=== PATIENT | male | born 1955 | race Caucasian/White ===

== ENCOUNTER 2017-09-12 10:27 | Outpatient (CLI) | payer BC, OTHER | END 2017-09-12 10:28 | disposition home or self-care (01) | LOC: SC 10:27 | PROVIDERS: ATTEND Nurse Practitioner Family | DX: G47.33 Obstructive sleep apnea (adult) (pediatric) (principal) | CPT/HCPCS: 99212; 99214 ==

== ENCOUNTER 2017-12-06 08:45 | Outpatient (CLI) | payer BC, OTHER ==
[2017-12-06 17:28] VITALS: BP 126/64
--- NOTE | 2017-12-09 07:45 | CARDIAC PROCEDURE NOTE ---
DATE OF SERVICE: 12/06/2017 Physician: JENNIFER Ji PROCEDURE: Cardiac treadmill stress test. PROCEDURE SYMPTOMS: Atypical chest pain. CARDIAC RISK FACTORS: Age, hypertension, hyperlipidemia. PREVIOUS CARDIAC PROCEDURES: None. CLINICAL HISTORY: A 61-year-old male without known coronary artery disease. INITIAL RESTING VITAL SIGNS: BP 128/86, heart rate 58, height 67 inches, weight 224 pounds, BMI 34.31. PROCEDURE AND FINDINGS: Patient identity and date verified. Consent signed. The patient performed treadmill exercise using a [place] protocol, completing 8 minutes 59 seconds, and completing an estimated workload of 10.16 metabolic equivalents. Maximal blood pressure was 178/68 with a heart rate of 152 beats per minute or 96% of maximum predicted heart rate for age. The blood pressure response to exercise was within normal limits. The patient stopped because he was tiring. The resting ECG demonstrated normal sinus rhythm with no abnormality. Maximum ST-segment depression was less than 0.5 mm and upsloping. There was 1 PAC. FINAL IMPRESSIONS 1. Good quality test. 2. Negative stress electrocardiogram for ischemia by electrocardiographic criteria. 3. Negative stress test clinically for angina. 4. Single PAC. 5. [place] [employer] Association functional class I. Exceeded expected exercise time of 8 minutes 35 seconds. cc: Vielka Tomas PA-C TD: 12/06/2017 10:17
== END 2017-12-06 08:46 | disposition home or self-care (01) ==
LOC: DI 08:45
PROVIDERS: ATTEND Physician Assistant
DX: R07.89 Other chest pain (principal)

== ENCOUNTER 2017-12-14 08:25 | Outpatient (CLI) | payer BC, OTHER ==
--- NOTE | 2017-12-14 12:08 | Ultrasound Report ---
THYROID ULTRASOUND: 12/14/2017 HISTORY: 4 mm thyroid nodule on 2016 ultrasound. COMPARISON: 07/21/2015. FINDINGS: Right lobe 5.2 x 1.7 x 2.2 cm, volume 10.1 mL. Left lobe 4.1 x 1.4 x 1.4 cm, volume 4.2 mL Thyroid isthmus 0.22 mL A 5 x 6 x 5 mm hypoechoic right-sided nodule at the junction of the isthmus and right lobe is similar in appearance to the prior study. Adjacent to this, there is an isoechoic 6 x 3 x 4 mm nodule not definitely seen on the prior study. No regional adenopathy. IMPRESSION: STABLE HYPOECHOIC AVASCULAR RIGHT THYROID NODULE COMPARED WITH . NEW ISOECHOIC 6 X 3 X 4 MM NODULE ADJACENT TO THE PREVIOUSLY SEEN NODULE, A NONSPECIFIC FINDING. NO OTHER SIGNIFICANT FINDINGS. TD: 12/14/2017 11:27 VARUN
--- NOTE | 2017-12-14 15:12 | Ultrasound Report ---
ABDOMEN ULTRASOUND: 12/14/2017 HISTORY: Followup fatty liver. COMPARISON: 07/21/2015. TECHNIQUE: Real-time scanning by this relocation services specialist with saved static images reviewed. FINDINGS: Somewhat limited examination due to the patient's body habitus. Liver 20 cm longitudinally with heterogeneous increased echotexture consistent with fatty infiltration. Normal directional portal venous blood flow. No definite focal mass. Gallbladder: No stones. Gallbladder wall thickness 2.5 mm. Common bile duct 5.6 mm. Pancreas not well seen. Right kidney 10.6 cm and left kidney 11.3 cm in length. No stones, obstruction , or masses. Spleen: 13.6 cm in length. Unremarkable. Aorta and inferior vena cava: Unremarkable. Free fluid: None. IMPRESSION: HEPATOMEGALY WITH FATTY INFILTRATION OF THE LIVER, SIMILAR TO 07/21. OTHERWISE, NEGATIVE ABDOMEN ULTRASOUND. TD: 12/14/2017 14:36 MTDD
== END 2017-12-14 08:26 | disposition home or self-care (01) ==
LOC: DI 08:25
PROVIDERS: ATTEND Physician Assistant
DX: E04.2 Nontoxic multinodular goiter (principal); K76.0 Fatty (change of) liver, not elsewhere classified
CPT/HCPCS: 76536; 76700

== ENCOUNTER 2018-05-27 10:10 | Outpatient (CLI) | payer BC, OTHER ==
[2018-05-27 17:15] LABS: PSA FREE 0.35 ng/mL (0.16-2.81)
[2018-05-27 17:16] LABS: PSA TOTAL 4.36 ng/mL (0.000-2.000)
[2018-05-27 17:18] LABS: FOLATE 15.04 ng/mL (5.90 - >24.8)
== END 2018-05-27 10:11 | disposition home or self-care (01) ==
LOC: LAB.WCP 10:10
PROVIDERS: ATTEND Physician Assistant
DX: R20.2 Paresthesia of skin (principal); N40.0 Benign prostatic hyperplasia without lower urinary tract symptoms
CPT/HCPCS: 36415; 82607; 82746; 83735; 84153; 84154

== ENCOUNTER 2018-09-16 08:11 | Outpatient (CLI) | payer BC, OTHER | END 2018-09-16 08:12 | disposition home or self-care (01) | LOC: SC 08:11 | PROVIDERS: ATTEND Nurse Practitioner Family | DX: G47.33 Obstructive sleep apnea (adult) (pediatric) (principal) | CPT/HCPCS: 99212; 99214 ==

== ENCOUNTER 2019-09-02 08:00 | Outpatient (CLI) | payer BC, OTHER ==
[2019-09-02 12:42] LABS: ALBUMIN 4.2 g/dL (3.2-5.5); ALBUMIN/GLOBULIN RATIO 1.5 (1.0-2.2); ALKALINE PHOSPHATASE 46 IU/L (42-121); ALT ALANINE AMINOTRANSFERASE 46 IU/L (10-60); AST ASPARTATE AMINOTRANSFERASE 27 IU/L (10-42); BILIRUBIN,TOTAL 1.1 mg/dL (0.2-1.0); BUN - BLOOD UREA NITROGEN 21 mg/dL (6-20); CALCIUM 9.1 mg/dL (8.5-10.3); CARBON DIOXIDE - CO2 27 mmol/L (21-32); CHLORIDE 105 mmol/L (101-111); CHOLESTEROL 134 mg/dL; CREATININE 1.1 mg/dL (0.6-1.2); GFR - MDRD 67 (>89); GLUCOSE 114 mg/dL (70-100); HDL CHOLESTEROL 45 mg/dL; LDL CHOLESTEROL,CALCULATED 77 mg/dL; LDL/HDL RATIO 1.7 (<3.6); SODIUM 139 mmol/L (135-145); VLDL CHOLESTEROL 12 mg/dL
[2019-09-02 12:45] LABS: PSA FREE 0.505 ng/mL (0.16-2.81)
[2019-09-02 12:46] LABS: PSA TOTAL 4.469 ng/mL (0.000-2.000)
== END 2019-09-02 23:59 | disposition home or self-care (01) ==
LOC: LAB.WCP 08:00
PROVIDERS: ATTEND Urology
DX: R97.20 Elevated prostate specific antigen [PSA] (principal); E78.5 Hyperlipidemia, unspecified
CPT/HCPCS: 36415; 80053; 80061; 83721; 84153; 84154

== ENCOUNTER 2019-09-23 10:28 | Outpatient (CLI) | payer BC, OTHER ==
--- NOTE | 2019-09-23 10:47 | XRAY Report ---
Reason: RIGHT HIP JOINT PAIN Procedure Date: 09/23/2019 Accession Number: [id number] / [id number] Procedure: WCP - Hip 1 View RT CPT Code: Final Report FULL RESULT: EXAM: RIGHT HIP RADIOGRAPHY EXAM DATE: 09/23/2019 10:28 AM. CLINICAL HISTORY: RIGHT HIP JOINT PAIN. COMPARISON: None. TECHNIQUE: 2 views. FINDINGS: Bones: Normal. No fractures or bone lesion. Joints: Minimal degenerative changes in the right hip joint. Soft Tissues: Normal. No soft tissue swelling. IMPRESSION: Minimal degenerative changes in the right hip joint. RADIA
== END 2019-09-23 10:29 | disposition home or self-care (01) ==
LOC: DI.WCP 10:28
PROVIDERS: ATTEND Physician Assistant
DX: M16.11 Unilateral primary osteoarthritis, right hip (principal)

== ENCOUNTER 2019-11-10 15:49 | Outpatient (CLI) | payer BC, OTHER ==
--- NOTE | 2019-11-10 10:15 | SLEEP CARE CONSULTATION ---
Information from patient questionnaire entered by Florence Medina. I have reviewed and concur with the information entered by Florence Medina. This document represents the service I personally performed and the decisions made by me, Sylvia Hess, RN, MSN, CERTIFIED NURSING ATTENDANT. History of Present Illness Service Date and Time: 11/10/2019929 Previous diagnosis: Moderate, Obstructive Sleep Apnea-Hypopnea Syndrome AHI: 20.3 Reason for follow up: annual Equipment type: CPAP [facility] Mask style: Full face Backup mask available: Yes Last cushion change: 2 weeks ago CPAP Compliance Data - Data Reviewed with Patient Average duration of nightly device use: 8H 33M Compliance rate %: 93.3 Current pressure setting (cmH2O): 16 Humidity settin Average residual AHI: 2 Average large leak: 0S Subjective Patient concerns: reports: mask discomfort (only when over tightens mask ), mask leak noise (rare when headgear wearing ), condensation in mask/hose (if humidity higher than 1 -so keeps at one), dry mouth, nose, throat (dry mouth was noted and used Biotene with resolution ). denies: aerophagia, air blowing in eyes, nasal congestion, epistaxis Observed to snore while using device: Yes (when he sleeps on his back) Current pressure setting perceived as: comfortable On therapy, patient: reports: sleeping better (cant sleep without it), awakening more refreshed, being more awake and alert during the day, more rested overall. denies: drowsiness while driving Initial [place] Sleepiness Scale score: 14 Allergies and Home Medications Home medication list reviewed: No (no changes) Review of Systems Review of systems same as previous: Yes Physical Exam Height: 5 ft 7 in Weight: 210 lb (home weight) Body Mass Index: 32.8 BMI Classification: Obese Impression and Plan t 1. Obstructive Sleep Apnea-Hypopnea Syndrome, moderate, with good treatment compliance and good apnea control. On CPAP therapy, the patient has better sleep quality and is more rested overall. Since his 2nd device appears to be over 5 years old, has condensation if the humidity is greater than 1 and contributes to oral dryness I will update the device. The new CPAPs have a better humidity process and heated hose to assist management of oral dryness. Currently Biotene is assisting control of oral dryness symptoms. The process discussed and compl iance follow up. Since he is snoring when supine I will increase his autoCPAP pressure to 16-18 cmH20. He is advised to contact me if pressure change uncomfortable so that I can adjust as needed. Since he has gained about 5-10 pounds from reduced activity since COVID outside activity precautions, and now obese with 32 BMI, I discussed how weight affects his apnea risks and CPAP pressure requirements as well as increases overall health risks. He is advised to lose weight by reducing portions and refined foods with a focus on healthy content. In addition, the importance of eating slower was also discussed. If unable to reach weight loss goals, he is to contact his PCP to discuss a diet consultation. Patient agreed with plan. In addition, I reviewed symptoms to report for pressure change from weight change. Patient's apnea severity and rationale for treatment to reduce apnea, improve sleep quality and reduce cardiovascular and cerebrovascular events was reviewed. * Changeauto CPAP pressure to 16-18 cmH2O * Update CPAP * Notify me if snoring with mask or feeling that the pressure is too much or too little * Attempt to lose weight * Call this office if any problems using CPAP * Return for follow up in 1 month after new device , or sooner if concerns arise Visit Type: Telehealth Phone (to minimize risk of Covid 19 exposure) Patient Location: Home Location of Provider: Home Patient agrees and consents to this telehealth visit type: Yes Patient agrees to have their insurance billed: Yes Time Spent with Patient (minutes): 25 Provider Statement: I spent 100% of the Telehealth Phone Call with the patient with greater than 50% spent counseling the patient and coordination of care.
== END 2019-11-10 15:50 | disposition home or self-care (01) ==
LOC: SC 15:49
PROVIDERS: ATTEND Nurse Practitioner Family
DX: G47.33 Obstructive sleep apnea (adult) (pediatric) (principal); E66.9 Obesity, unspecified; Z68.32 Body mass index [BMI] 32.0-32.9, adult

== ENCOUNTER 2020-01-07 10:25 | Outpatient (CLI) | payer MEDICARE, OTHER ==
--- NOTE | 2020-01-07 11:02 | SLEEP CARE CONSULTATION ---
Information from patient questionnaire entered by Rena Gonzalez. I have reviewed and concur with the information entered by Rena Gonzalez. This document represents the service I personally performed and the decisions made by me, Sylvia Hess, RN, MSN, DISABILITY COORDINATOR. History of Present Illness Service Date and Time: 01/07/2020 1025 Previous diagnosis: Moderate, Obstructive Sleep Apnea-Hypopnea Syndrome AHI: 20.3 (in 2009) Reason for follow up: three month Equipment type: CPAP Equipment obtained from: [employer] Mask style: Full face Mask brand: Resmed Backup mask available: Yes Last cushion change: 2 weeks ago Prior sleep studies: Yes Year and Where: [address] - [facility] Type of Sleep Study: Polysomnography HPI additional information: Snoring when supine resolved with pressure range increase. He was unable to get his new CPAP until reseen due to change in insurance to Medicare. Janet has informed that the device is ready for set up and needs new order. He forgot his CPAP data card and will bring in the next 24 hours for download. Subjective Patient concerns: reports: mask discomfort (from tightening mask for mask leaks. ), air blowing in eyes (Air Fit 10 - adjusts mask nightly 1-2 times a night / changes monthly/ washes daily), condensation in mask/hose (1-2 times a week -no heated hose / humidity is set at 1 for this reason. ), dry mouth, nose, throat (occasional dry mouth with benefit from Biotene ), epistaxis (1 time a month that he feels is from headgear tightness. ), other (strap baptiste on face lasting all day). denies: aerophagia, mask leak noise, nasal congestion Observed to snore while using device: No Current pressure setting perceived as: comfortable On therapy, patient: reports: sleeping better, awakening more refreshed, being more awake and alert during the day, more rested overall. denies: drowsiness while driving Initial [place] Sleepiness Scale score: 14 (in 2009) Current [place] Sleepiness Scale score: 9 Allergies and Home Medications Known drug allergies: No Home medication list reviewed: No (no changes stated) Review of Systems Review of systems same as previous: Yes Physical Exam Blood Pressure: 110/60 Cuff size: long Heart Rate: 60 O2 Saturation: 95 Height: 5 ft 7 in Weight: 221 lb Body Mass Index: 34.6 BMI Classification: Obese Impression and Plan 1. Obstructive Sleep Apnea-Hypopnea Syndrome, moderate, with unknown treatment compliance and unknown apnea control. He will bring in data card in 24 hours for download.On CPAP therapy, the patient has better sleep quality and is more rested overall. He needs a new prescription since transition to Medicare to update his CPAP. It is unclear why he is waking 1-2 times a night for mask leaks at bridge of nose except he may need a different style. He adjusts mask and cleans daily and changes cushion regularly. Thus a mask refitting was ordered. For oral and nasal dryness, he needs a higher humidity but he has condensation with present device if humidity higher than 1. Thus an updated device should reduce symptoms. He is encouraged to adjust settings on new device to reduce all dryness symptoms. Patient's apnea severity and rationale for treatment to reduce apnea, improve sleep quality and reduce cardiovascular and cerebrovascular events was reviewed. I also reviewed the benefit of consistent device use of CPAP for hypertension, * Continue auto CPAP pressure at 16-18 cmH2O * update CPAP * mask refitting * Notify me if snoring with mask or feeling that the pressure is too much or too little * Attempt to lose weight * Call this office if any problems using CPAP * Return for follow up in one month after new device , or sooner if concerns arise * * Addendum: patient brought in compliance data card later in morning. * It shows that he uses CPAP an average of 8.5 hours with 100% of CPAP compliance over 4 hours of use nightly. His CPAP pressure is set at [id number] and his residual AHI is 2.1. No mask leaks. * Thus a new prescription will be made with CPAP set at [id number]. Visit Type: In Office Time Spent with Patient (minutes): 20 Provider Statement: I spent 100% of the Face to Face Visit with the patient with greater than 50% spent counseling the patient and coordination of care.
[2020-01-07 11:03] VITALS: BP 110/60
== END 2020-01-07 10:26 | disposition home or self-care (01) ==
LOC: SC 10:25
PROVIDERS: ATTEND Nurse Practitioner Family
DX: G47.33 Obstructive sleep apnea (adult) (pediatric) (principal); E66.9 Obesity, unspecified; Z68.34 Body mass index [BMI] 34.0-34.9, adult
CPT/HCPCS: 99213; G0463; 99212

== ENCOUNTER 2023-09-04 09:46 | Outpatient (CLI) | payer MEDICARE, OTHER ==
--- NOTE | 2023-09-04 10:21 | Sleep Patient Instructions ---
Sleep Center Visit Summary - Patient Visit Information Reason for Visit: Initial visit to reestablish care for PAP therapy - Patient Instructions Additional Instructions: You will continue with CPAP therapy with pressure set at 16-18 cmH2O. A supply prescription will be updated with your DME. We encourage you to continue to try to lose weight. Please follow up with the sleep care office in 1 year. - Clinic Information Contact: [facility] [address] [place] [id number] [email or web address] T: [phone]
--- NOTE | 2023-09-04 10:25 | SLEEP CARE CONSULTATION ---
Information from patient questionnaire entered by Mary Hernández. I have reviewed and concur with the information entered by Mary Hernández. This document represents the service I personally performed and the decisions made by me, Lillian Castillo ARNP. History of Present Illness Service Date and Time: 09/04/2023 0946 Reason for Visit: New patient, Previously diagnosed sleep apnea, sleep apnea on CPAP therapy, Re-establish care Chief Complaint: reports: Other (re-establish care) Usual bedtime: 10-11PM Time it takes to fall asleep: UP TO AN HR Snores at night: Yes Observed to quit breathing while asleep: Yes Sleeps alone due to snoring: No Number of times waking at night: 1-2 Reasons for waking at night: reports: Bathroom Toss, Turn, or Twitch while sleeping: Yes Recalls having dreams: Yes Usually gets out of bed at: 7AM Feels refreshed in the morning: Yes Morning headache: No Sleepy or fatigued during the day: Yes Ever fallen asleep while driving: Yes Takes day naps: Yes Dreams during day naps: No Prior sleep studies: Yes Year and Where: 2009 - [facility] Additional HPI information: NORRIS POWELL was previsously diagnosed to have moderate, AHI 20.3, obstructive sleep apnea-hypopnea syndrome and comes in today to re-establish care for CPAP therapy. - Parasomnia Symptoms Ever been unable to move upon waking from sleep: No Walks in sleep: No Talks in sleep: No Ever acted out dreams in sleep: Yes Ever felt weak in the knees when startled or emotional: No Bothered by creepy, crawly, restless sensations in legs: No Problems with memory or concentration: Yes CPAP Compliance Data - Data Reviewed with Patient Average duration of nightly device use: 8 hours 33 minutes Compliance rate %: 100 (180/180 days used; 03/08/23-09/03/23) Current pressure setting (cmH2O): 16-18 Average residual AHI: 0.5 Central apnea: 0.1 Obstructive apnea: 0.1 Hypopnea: 0.2 Average large leak: 0.7 L/min Compliance data discussion: He has a ResMed Airsense 10 CPAP. He is getting supplies from [facility]. He is using an AirFit F30, medium cushion, last changed at end of the month. Subjective Patient concerns: reports: mask discomfort (occasional sore under nose). denies: aerophagia, air blowing in eyes, mask leak noise, condensation in mask/hose, nasal congestion, dry mouth, nose, throat, epistaxis Observed to snore while using device: No Current pressure setting perceived as: comfortable On therapy, patient: reports: sleeping better, awakening more refreshed, being more awake and alert during the day, more rested overall. denies: drowsiness while driving Initial [place] Sleepiness Scale score: 14 (in 2009) Current [place] Sleepiness Scale score: 8 (08/02/23) Past Medical History Past Medical History: reports: Hypertension, Arthritis Social History The patient's occupation is a RE. Patient is and lives in [place]. Have you smoked in the past 12 months: No Cigarettes per day (20/pack): 20 Years of smokin Quit date: 1974 Smoking Pack Years: 8.0 Alcohol use: Yes Alcohol amount and frequency: 1-2 DRINKS 2-3 TIMES A WEEK Caffeine use: Yes Caffeine amount and frequency: 2-3 CUPS Family History Family history of sleep disordered breathing: No Allergies and Home Medications Known drug allergies: No Drug allergies reviewed: Yes Home medication list reviewed: Yes Allergy and home medication list: Medications: Meloxicam 15 mg daily Chlorthalidone 25 mg daily Losartan 100 mg daily Pravastatin 40 mg daily Vit C daily 200 mg Vit D 50 mcg daily Turmeric Curcumin 500 mg daily Krill oil 500 mg daily Review of Systems Cardiovascular: reports: high blood pressure Gastrointestinal: denies: heartburn Neurological: denies: headaches Psychiatric: denies: anxiety, depression Ear/Nose/Throat: reports: wisdom teeth removed. denies: tonsillectomy Musculoskeletal: reports: joint pain, back pain Physical Exam Vital signs obtained and entered by: LILLIAN REESE Blood Pressure: 123/23 Cuff size: regular Heart Rate: 60 O2 Saturation: 96 Height: 5 ft 7 in Weight: 222 lb 9.6 oz Body Mass Index: 34.8 BMI Classification: Obese Neck circumference: 17.5 (inches) Heart: regular rate and rhythm Lungs: clear bilaterally Impression and Plan 1. Obstructive Sleep Apnea-Hypopnea Syndrome, moderate, with good treatment compliance and good apnea control. On CPAP therapy, the patient has better sleep quality and is more rested overall. He has not had any problems with getting his supplies. He comes in today just to reestablish care and make sure his therapy is going well. Patient has significant improvement of their sleep apnea and is satisfied with current CPAP therapy. Patient denies problems with oral dryness, nasal congestion, epistaxis, skin irritation or aerophagia. Patient's apnea severity and rationale for treatment to reduce apnea, improve sleep quality and reduce cardiovascular and cerebrovascular events was reviewed. I also reviewed the benefit of consistent device use of CPAP for hypertension. 2. Obesity, unspecified. Currently patients BMI is 34.8. He is trying to watch his portions and eat more healthy and has only lost about 5 pounds in the last year. Obesity increases the risk of apnea, CPAP pressure requirements and overall health risks especially cardiovascular and diabetes. Thus patient is advised to lose weight. * Continue autoCPAP pressure at 16-18 cmH2O * Update supply prescription * Notify me if snoring with mask or feeling that the pressure is too much or too little * Attempt to lose weight * Call this office if any problems using CPAP * Return for follow up in 12 months, or sooner if concerns arise Counseling Topics: Spare mask, Weight loss health impact Prescriptions: Device supplies Follow up with Sleep Care in: 1 year Visit Type: In Office Time Spent with Patient (minutes): 30 Provider Statement: I spent 100% of the Face to Face Visit with the patient with greater than 50% spent counseling the patient and coordination of care.
[2023-09-04 10:31] VITALS: BP 123/23; O2SAT 96
== END 2023-09-04 09:47 | disposition home or self-care (01) ==
LOC: SC 09:46
PROVIDERS: ATTEND Nurse Practitioner Family
DX: G47.33 Obstructive sleep apnea (adult) (pediatric) (principal); E66.9 Obesity, unspecified; Z68.34 Body mass index [BMI] 34.0-34.9, adult; Z87.891 Personal history of nicotine dependence
CPT/HCPCS: 99203; G0463; 99212